=== PATIENT | female | born 1955 | race Caucasian/White ===

== ENCOUNTER → 2017-02-15 | Outpatient (CLI) | payer OTHER ==
--- NOTE | ~2017-02-15 | CR170 ---
[facility] A Service of [facility] & [facility] [place] RADIOLOGY TEXT RESULTS PATIENT: RAUL EUGENE LOCATION: [facility] : 57 UNIT #: [id number] AGE: [address]: LINA GARCIA APRN SEX: F ORDER DR: [id number] [place] [id number] O MR#: [id number] Acc #: [id number] NAME: RAUL EUGENE : 1955 SEX: F STUDY DATE/TIME: 02/15/2017 11:46 UNIT: [facility] ROOM: STUDY DESCRIPTION: CR Knee 2 Views Rt Attending Physician: Lina Garcia Aprn Referring Physician: Lina Garcia Aprn Ordering Physician: Lina Garcia Aprn Primary Care Physician: Lina Garcia Aprn MEDICAL IMAGING REPORT This report is preliminary unless electronic signature is present. EXAM Right knee series, 02/15/2017. HISTORY Pain and arthritis, popped knee coming up basement steps. No hand injury. Last right knee, both hands, 3 years sore right knee. FINDINGS AP and lateral radiographs of the right knee are presented. There is no fracture or malalignment. Mild narrowing of patellofemoral joint space. There is a suggestion of a small suprapatellar joint effusion. No soft tissue defect, subcutaneous air or radiodense foreign body. If it would assist in management, knee could be further assessed with MRI if the patient is a candidate. Dictated by... Rajiv Lundberg M.D. THIS IS AN ELECTRONICALLY VERIFIED REPORT Rajiv Lundberg M.D. at 02/16/2017 10:25 PM SADIQ/ken TD: 02/16/2017 02:38 JOB #: [id number] MEDICAL IMAGING REPORT Page 1 of 1
--- NOTE | ~2017-02-15 | CR142 ---
[facility]. [facility] A Service of [facility] & [facility] RADIOLOGY TEXT RESULTS PATIENT: RAUL EUGENE LOCATION: [facility] : 57 UNIT #: [id number] AGE: [address]: LINA GARCIA APRN SEX: F ORDER DR: [id number] [place] [id number] O MR#: [id number] Acc #: [id number] NAME: RAUL EUGENE : 1955 SEX: F STUDY DATE/TIME: 02/15/2017 11:46 UNIT: [facility] ROOM: STUDY DESCRIPTION: CR Hand Min 3 Views Rt Attending Physician: Lina Garcia Aprn Referring Physician: Lina Garcia Aprn Ordering Physician: Lina Garcia Aprn Primary Care Physician: Lina Garcia Aprn MEDICAL IMAGING REPORT This report is preliminary unless electronic signature is present. EXAM Right hand 02/15/17 INDICATIONS Hand pain. Arthritis. Hand pain has been chronic for 3 years. FINDINGS Three views of the right hand were obtained. There is osteoarthritic spurring about the interphalangeal joints of the fingers and thumb. No fractures are seen. There are no erosive changes. IMPRESSION Osteoarthritis throughout the fingers and thumb. No fracture or malalignment. Dictated by... Seb Rogers Jr., M.D. THIS IS AN ELECTRONICALLY VERIFIED REPORT Seb Rogers Jr., M.D. at 02/16/2017 6:33 PM TORRIE/jayna TD: 02/16/2017 13:00 JOB #: [id number] MEDICAL IMAGING REPORT Page 1 of 1
--- NOTE | ~2017-02-15 | CR141 ---
[facility] A Service of [facility] RADIOLOGY TEXT RESULTS PATIENT: RAUL EUGENE LOCATION: [facility] : 57 UNIT #: [id number] AGE: [address]: LINA GARCIA APRN SEX: F ORDER DR: [id number] [address] [address] [id number] O MR#: [id number] Acc #: [id number] NAME: RAUL EUGENE : 1955 SEX: F STUDY DATE/TIME: 02/15/2017 11:46 UNIT: [facility] ROOM: STUDY DESCRIPTION: CR Hand Min 3 Views Lt Attending Physician: Lina Garcia Aprn Referring Physician: Lina Garcia Aprn Ordering Physician: Lina Garcia Aprn Primary Care Physician: Lina Garcia Aprn MEDICAL IMAGING REPORT This report is preliminary unless electronic signature is present. EXAM Left hand 3 views 02/21/2017 HISTORY Left hand pain and swelling in fingers for 3 years, left hand arthritis. FINDINGS 3 views of the left hand demonstrate no fracture. There is degenerative change with narrowing of the second through fifth distal interphalangeal joints. Additionally, there is osteophytic spurring about the first interphalangeal joint as well as about the second through fifth proximal and distal interphalangeal joints. Degenerative subchondral cyst formation is seen about the second and third proximal and distal interphalangeal joints. Soft tissue swelling is seen about the second through fifth phalanges. Findings suggest osteoarthritis. No erosive process is seen. No foreign body is identified. IMPRESSION Findings characteristic of osteoarthritis as detailed above. Dictated by... Kuldip Galindo M.D. THIS IS AN ELECTRONICALLY VERIFIED REPORT Kuldip Galindo M.D. at 02/17/2017 8:02 AM JOSE LUIS/haley TD: 02/16/2017 10:04 JOB #: [id number] [facility] A Service of [facility] & [facility] RADIOLOGY TEXT RESULTS PATIENT: RAUL EUGENE LOCATION: [facility] #: [id number] : 57 UNIT #: [id number] AGE: [address]: LINA GARCIA APRN SEX: F ORDER DR: MEDICAL IMAGING REPORT Page 1 of 1
== END | disposition home or self-care (01) ==
LOC: SRAD 11:37
DX: M19.041 Primary osteoarthritis, right hand (principal); M19.042 Primary osteoarthritis, left hand; M25.561 Pain in right knee
CPT/HCPCS: 73130; 73560

== ENCOUNTER → 2017-03-08 | Outpatient (CLI) | payer OTHER ==
--- NOTE | ~2017-03-08 | MR104 ---
[facility] A Service of [facility] & [facility] RADIOLOGY TEXT RESULTS PATIENT: RAUL EUGENE LOCATION: [facility] : 57 UNIT #: [id number] AGE: [address]: Cj Meza MD SEX: F ORDER DR: [id number] [address] [address] [id number] O MR#: [id number] Acc #: [id number] NAME: RAUL EUGENE : 1955 SEX: F STUDY DATE/TIME: 03/08/2017 10:18 UNIT: [facility] ROOM: STUDY DESCRIPTION: MR Knee Wo Contrast Rt Attending Physician: Cj Meza M.D. Referring Physician: Cj Meza M.D. Ordering Physician: Cj Meza M.D. Primary Care Physician: Lina Israel Aprn MRI CENTER REPORT This report is preliminary unless electronic signature is present. EXAM MRI of the right knee without contrast HISTORY Knee popped walking up steps February 15. Still complains of pain and some swelling. COMPARISON Right knee films 02/15/2017 FINDINGS Multiplanar multiecho imaging was performed of the right knee utilizing a high field magnet and dedicated protocol. In the medial compartment there is a complex tear of the posterior body segment posterior horn medial meniscus with elements of both vertical tear as well as a longitudinal oblique tear of the posterior horn of the meniscus. No displaced meniscal fragment. Tear is estimated close to 2 cm in length. There is associated meniscal capsular edema. Mild chondromalacia medial compartment. In the lateral compartment the meniscus and articular cartilage appears intact. In the patellofemoral compartment there is a 2 cm focus of high-grade chondromalacia involving the median ridge of the patella and extending into the medial patellar facet. There is a small amount of subchondral edema and cystic change. Mild chondromalacia deep trochlear groove. The cruciate and collateral ligaments appear intact. The extensor mechanism demonstrates a patella baja. Small amount of pretibial edema. IMPRESSION 1. Complex tear posterior body segment posterior horn medial meniscus with associated meniscocapsular edema. 2. 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 [facility] A Service of [facility] & [facility] RADIOLOGY TEXT RESULTS PATIENT: RAUL EUGENE LOCATION: [facility] : 57 UNIT #: [id number] AGE: [address]: Cj Meza MD SEX: F ORDER DR: compartment and high-grade chondromalacia median ridge and medial patellar facet within the patellofemoral compartment. Dictated by... Lissa Adams M.D. THIS IS AN ELECTRONICALLY VERIFIED REPORT Lissa Adams M.D. at 03/10/2017 7:22 AM FLORA/tyra TD: 03/09/2017 07:42 JOB #: [id number] MRI CENTER REPORT Page 1 of 1
== END | disposition home or self-care (01) ==
LOC: SMRI 10:00
DX: M25.561 Pain in right knee (principal); M23.221 Derangement of posterior horn of medial meniscus due to old tear or injury, right knee; M22.41 Chondromalacia patellae, right knee; M17.11 Unilateral primary osteoarthritis, right knee
CPT/HCPCS: 73721